=== PATIENT | male | born 1995 | race Caucasian/White ===

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

== ENCOUNTER → 2018-09-10 | Outpatient (CLI) | payer BC ==
--- NOTE | 2018-09-10 20:34 | RADIOLOGY REPORT (SQ) ---
EXAM DESCRIPTION: XR RIBS UNILATERAL WITH CHEST COMPLETED DATE/TME: 09/10/2018 20:03 CLINICAL HISTORY: 23 years, Male, PLEURODYNIA COMPARISON: Prior study from 01/06/2016 NUMBER OF VIEWS: Three TECHNIQUE: Frontal and oblique radiographs of the chest were obtained LIMITATIONS: None. FINDINGS: Cardiac and mediastinal contours are normal in appearance. Lungs are clear. No pleural effusion or pneumothorax. No definite rib fractures are identified. IMPRESSION: No acute disease. No rib fracture identified. copyright 2010 [employer]- All Rights Reserved
== END ==
LOC: RAD 19:56
PROVIDERS: ATTEND Nurse Practitioner Family
DX: R07.81 Pleurodynia (principal)